=== PATIENT | male | born 1980 | race Caucasian/White ===

== ENCOUNTER 2018-03-27 15:21 | Emergency (ER) | payer OTHER ==
[2018-03-27] MEDS: ONDANSETRON 4 MG INJ IV (16:58)
[2018-03-27] MEDS: SOD CHLORIDE 0.9% 1,000 ML IV (16:59)
[2018-03-27] MEDS: morphine 4 MG/ML VIAL IV (16:59)
[2018-03-27 17:34] LABS: ADD UMIC NO; UR ASCORBIC ACID NEGATIVE (NEGATIVE); UR BILIRUBIN (Dip) NEGATIVE (NEGATIVE); UR BLOOD (Dip) NEGATIVE (NEGATIVE); UR CLARITY SLIGHTLY CLOUDY (CLEAR); UR COLOR YELLOW (YELLOW); UR GLUCOSE (Dip) NEGATIVE (NEGATIVE); UR KETONES (Dip) NEGATIVE (NEGATIVE); UR LEUKOCYTE ESTERASE (Dip) NEGATIVE Leu/ul (NEGATIVE); UR MUCUS FEW /HPF (NONE SEEN); UR NITRITE (Dip) NEGATIVE (NEGATIVE); UR RBC 1 /HPF (0-5); UR TOTAL PROTEIN (Dip) NEGATIVE (NEGATIVE); UR UROBILINOGEN (Dip) NEGATIVE (NEGATIVE); UR WBC 3 /HPF (0-5)
[2018-03-27 17:58] LABS: ADD MAN DIFF? NO
[2018-03-27 18:00] LABS: BASOPHIL # 0.1 10^3/ul (0.0-0.1); BASOPHILS % 0.5 % (0.0-2.0); EOSINOPHILS # 0.2 10^3/ul (0.0-0.5); EOSINOPHILS % 1.9 % (0.0-7.0); HEMATOCRIT 45.7 % (42.0-52.0); HEMOGLOBIN 15.2 g/dl (14.0-18.0); LYMPHOCYTES % 26.9 % (15.0-51.0); MEAN CORPUSCULAR HEMOGLOBIN 30.5 pg (29.0-33.0); MEAN CORPUSCULAR HGB CONC 33.3 g/dl (32.0-37.0); MEAN CORPUSCULAR VOLUME 91.6 fl (82.0-101.0); MONOCYTES % 8.8 % (0.0-11.0); NEUTROPHIL # 6.8 10^3/ul (1.6-7.5); NEUTROPHILS % 61.3 % (39.0-77.0); PLATELET COUNT 277 10^3/UL (140-415); RED BLOOD COUNT 4.99 10^6/ul (4.70-6.10); RED CELL DISTRIBUTION WIDTH 13.6 % (11.5-14.5)
[2018-03-27 18:23] LABS: ALANINE AMINOTRANSFERASE 35 IU/L (13-69); ALBUMIN 4.5 g/dl (3.3-4.9); ALBUMIN/GLOBULIN RATIO 1.45; ALKALINE PHOSPHATASE 71 IU/L (42-121); ANION GAP 19 (8-16); ASPARTATE AMINO TRANSFERASE 28 IU/L (15-46); BILIRUBIN,INDIRECT 0.5 mg/dl (0-1.1); BILIRUBIN,TOTAL 0.5 mg/dl (0.2-1.3); BLOOD UREA NITROGEN 15 mg/dl (7-20); CALCIUM 9.3 mg/dl (8.4-10.2); CARBON DIOXIDE 26 mmol/L (21-31); CHLORIDE 104 mmol/L (97-110); CREATININE 0.92 mg/dl (0.61-1.24); GLUCOSE 105 mg/dl (70-220); LIPASE 124 U/L (23-300); POTASSIUM 3.8 mmol/L (3.5-5.1); SODIUM 145 mmol/L (135-144); TOTAL PROTEIN 7.6 g/dl (6.1-8.1)
== END 2018-03-27 18:43 | disposition home or self-care (01) ==
LOC: FTE 15:21
DX: N20.0 Calculus of kidney (principal)
CPT/HCPCS: 36415; 74176; 80053; 81001; 81003; 83690; 85025; 96374; 96375; 99285-25